=== PATIENT | female | born 1985 | race Two or more races ===

== ENCOUNTER 2020-06-26 13:07 | Inpatient (IN) | payer OTHER ==
[~2020-06-26] VITALS: Ht 157.5 cm; Wt 104.3 kg
== END 2020-06-28 09:59 | disposition home or self-care (01) | DRG 833 ==
LOC: OBS/DEL 13:07 → LDR 13:07 → OBS/DEL 06-27 00:57 → LDR 06-27 08:57 → OB/GYN 06-27 08:57
PROVIDERS: ADMIT Obstetrics & Gynecology; ATTEND Obstetrics & Gynecology
PROC: 4A1HXFZ Monitoring of Products of Conception, Cardiac Rhythm, External Approach (ICD-10-PCS; principal; 2020-06-26)
DX: O99.613 Diseases of the digestive system complicating pregnancy, third trimester (principal); Z3A.30 30 weeks gestation of pregnancy; K80.20 Calculus of gallbladder without cholecystitis without obstruction; K76.0 Fatty (change of) liver, not elsewhere classified

== ENCOUNTER → 2020-06-26 | Emergency (ER) | payer OTHER ==
[~2020-06-26] VITALS: Ht 157.5 cm; Wt 104.3 kg
[~2020-06-26] MED LIST: PRENATAL 19 CH1 EACH
== END | disposition still patient (30) ==
LOC: ER 06:14
DX: O99.613 Diseases of the digestive system complicating pregnancy, third trimester (principal); O26.893 Other specified pregnancy related conditions, third trimester; K21.9 Gastro-esophageal reflux disease without esophagitis; O26.843 Uterine size-date discrepancy, third trimester; O60.03 Preterm labor without delivery, third trimester; O99.891 Other specified diseases and conditions complicating pregnancy; R10.2 Pelvic and perineal pain; Z3A.31 31 weeks gestation of pregnancy

== ENCOUNTER 2020-08-04 17:03 | Inpatient (IN) | payer OTHER ==
[~2020-08-04] VITALS: Ht 157.5 cm; Wt 2.3 kg
== END 2020-08-09 12:21 | disposition home or self-care (01) | DRG 788 ==
LOC: OBS/DEL 17:03 → LDR 08-05 12:00 → OBS/DEL 08-05 12:00 → OB/GYN 08-06 17:27
PROVIDERS: ADMIT Obstetrics & Gynecology; ATTEND Obstetrics & Gynecology
PROC: 4A1HXFZ Monitoring of Products of Conception, Cardiac Rhythm, External Approach (ICD-10-PCS; 2020-08-05)
PROC: BW40ZZZ Ultrasonography of Abdomen (ICD-10-PCS; 2020-08-06)
PROC: 10D00Z1 Extraction of Products of Conception, Low, Open Approach (ICD-10-PCS; principal; 2020-08-06 16:00)
DX: O14.14 Severe pre-eclampsia complicating childbirth (principal); O60.14X0 Preterm labor third trimester with preterm delivery third trimester, not applicable or unspecified; Z3A.36 36 weeks gestation of pregnancy; Z37.0 Single live birth; Z20.828 Contact with and (suspected) exposure to other viral communicable diseases

== ENCOUNTER 2023-03-13 10:40 | Emergency (ER) | payer OTHER ==
[~2023-03-13] VITALS: Ht 157.5 cm; Wt 111.1 kg
== END 2023-03-13 13:40 | disposition home or self-care (01) ==
LOC: ER 10:40
DX: B34.9 Viral infection, unspecified (principal); Z20.822 Contact with and (suspected) exposure to COVID-19

== ENCOUNTER 2024-09-25 23:33 | Emergency (ER) | payer OTHER ==
[~2024-09-25] VITALS: Ht 157.5 cm; Wt 119.3 kg
[2024-09-26] MEDS ORDERED: ZYNCOF 20-400120 ML PO (02:10)
[2024-09-26] MEDS ORDERED: ALBUTEROL2.5 MG/3 M IH (02:10)
[2024-09-26] MEDS ORDERED: SYMBICORT 16010.2 GM IH (02:10)
[2024-09-26] MEDS ORDERED: BUDESONIDE0.5 MG/2 M IH (02:10)
[2024-09-26] MEDS ORDERED: VENTOLIN HFA18 GM IH (02:10)
== END 2024-09-26 02:16 ==
LOC: ER 23:35
DX: J06.9 Acute upper respiratory infection, unspecified (principal); Z88.6 Allergy status to analgesic agent; Z88.8 Allergy status to other drugs, medicaments and biological substances; Z20.822 Contact with and (suspected) exposure to COVID-19

== ENCOUNTER 2025-05-21 23:32 | Emergency (ER) | payer OTHER ==
[~2025-05-21] VITALS: Ht 157.5 cm; Wt 111.1 kg
[~2025-05-21 23:32] MED LIST changes: +ALBUTEROL2.5 MG/3 M IH; +BUDESONIDE0.5 MG/2 M IH; +SYMBICORT 16010.2 GM IH; +VENTOLIN HFA18 GM IH; +ZYNCOF 20-400120 ML PO
[2025-05-22] MEDS ORDERED: ACETAMINOPHEN 500 MG GEL..CAP PO STA (02:09)
[2025-05-22] MEDS ORDERED: MAG HYDROX/ALUMINUM HYD/SIMETH 30 ML BLIST.PACK PO STA (02:18)
[2025-05-22] MEDS ORDERED: SUCRALFATE 1 G TABLET PO STA (02:30)
[2025-05-22 03:05] LABS: BASO % 0.3 % (0.1-1.2); EOS # 0.04 (0.04-0.54); EOS % 0.4 % (0.7-7.0); LYMPH # 0.71 (1.18-3.74); LYMPH % 7.8 % (19.3-53.1); MEAN PLATELET VOLUME 10.90 fl (9.4-12.4); MONO # 0.66 (0.24-0.82); MONO % 7.2 % (4.7-12.5); NEUT # 7.61 (1.56-6.13); NEUT % 83.6 % (34.0-71.1); RED CELL DISTRIBUTION WIDTH 13.9 % (11.6-14.4)
[2025-05-22 03:49] LABS: COVID-19 AG POSITIVE (NEGATIVE)
== END 2025-05-22 05:33 ==
LOC: ER 23:32
PROVIDERS: General Practice
DX: U07.1 COVID-19 (principal); R12 Heartburn; R50.9 Fever, unspecified; Z88.6 Allergy status to analgesic agent; Z88.8 Allergy status to other drugs, medicaments and biological substances